=== PATIENT | female | born 1980 ===

== ENCOUNTER 2017-01-17 23:42 | Emergency (ER) | payer MEDICAID ==
[2017-01-18] MEDS ORDERED: Oxycodone/Acetaminophen 5/325 mg Tab PO STA (00:28)
[2017-01-18] MEDS ORDERED: Sodium Chloride 0.9% 1,000 ML IV STA (00:28)
--- NOTE | 2017-01-18 00:29 | ED PDOC ---
HPI: Headache Time Seen by Provider: 01/17/17 23:55 Chief Complaint (Nursing): Headache Chief Complaint (Provider): Headache and Leg pain History Per: Patient Additional Complaint(s): 37 yo female, denies any PMH, presents to ED with c/o migraine for the last 3 days, as well as, left LE pain x 3 weeks. No chest pain or SOB. No trauma or injury Past Medical History Reviewed: Nursing Documentation, Vital Signs Vital Signs: Last Vital Signs Temp 98.1 F 01/17/17 23:52 Pulse 98 H 01/17/17 23:52 Resp 17 01/17/17 23:52 BP 113/73 01/17/17 23:52 Pulse Ox 99 01/17/17 23:52 - Medical History PMH: Hypercholesterolemia - Surgical History Surgical History: Cholecystectomy, Tonsillectomy, - Family History Family History: States: No Known Family Hx - Home Medications Home Medications: Ambulatory Orders Medication Instructions Recorded Meloxicam [Mobic] 7.5 mg PO DAILY PRN #30 tab 01/13/16 Methocarbamol [Robaxin] 500 mg PO Q8 PRN #30 tab 01/13/16 Ibuprofen [Motrin] 600 mg PO Q6 #20 tab 01/18/17 - Allergies Allergies/Adverse Reactions: Allergies Allergy/AdvReac Type Severity Reaction Status Date / Time No Known Allergies Allergy Verified 07/12/15 18:04 Review of Systems ROS Statement: Except As Marked, All Systems Reviewed And Found Negative Musculoskeletal: Positive for: Other (calf paain and knee pain) Physical Exam - Reviewed Nursing Documentation Reviewed: Yes Vital Signs Reviewed: Yes - Physical Exam Appears: Positive for: Well, Non-toxic, No Acute Distress Head Exam: Positive for: ATRAUMATIC, NORMAL INSPECTION, NORMOCEPHALIC Skin: Positive for: Normal Color, Warm, DRY Eye Exam: Positive for: EOMI, Normal appearance, PERRL ENT: Positive for: Normal ENT Inspection Neck: Positive for: Normal, Painless ROM Cardiovascular/Chest: Positive for: Regular Rate, Rhythm Respiratory: Positive for: CNT, Normal Breath Sounds Gastrointestinal/Abdominal: Positive for: Normal Exam, Bowel Sounds, Soft Back: Positive for: Normal Inspection Extremity: Positive for: Normal ROM, Tenderness (to left calf), Calf Tenderness , Other (Dp pulse 2+. (+) Mone's sign). Negative for: Deformity, Swelling Neurologic/Psych: Positive for: Alert, Oriented - Laboratory Results Result Diagrams: 01/18/17 01:14 01/18/17 01:14 - ECG O2 Sat by Pulse Oximetry: 99 Medical Decision Making Medical Decision Making: IV access established and diagnotics ordered. IVF running and Pt medicated with Percocet and Reglan Left knee XR: NAD, as read by IAN CBC and COMP resulted WNL Dimer elevated at 0.62. Pt without any complaint sof chest pain or SOB. LE duplex ordered to r/o DVT FINDINGS: Deep veins: Normal color and spectral Doppler flow. Normal compressibility. No deep vein thrombosis from common femoral to popliteal vein. Superficial veins: No thrombosis. Soft tissues: No popliteal cyst. IMPRESSION: 1. No evidence of DVT within LEFT lower extremity. 2. Incidental/non-acute findings are described above. Pt educated on all results. Demonstrated full understanding. No complaints of pain on re-eval. Disposition - Clinical Impression Clinical Impression: Acute headache, Leg pain - Patient ED Disposition Is Patient to be Admitted: No - Disposition Disposition: Routine/Home Disposition Time: 03:00 Condition: GOOD Prescriptions: Ibuprofen [Motrin] 600 mg PO Q6 #20 tab Instructions: Acute Headache (ED), Leg Pain (ED) - POA Present On Arrival: None
[2017-01-18] MEDS ORDERED: Oxycodone/Acetaminophen 5/325 mg Tab ONE (00:38)
[2017-01-18 01:22] LABS: BASO # 0.1 K/uL (0.0-0.2); BASO % 0.6 % (0.0-2.0); EOS # 0.1 K/uL (0.0-0.7); HEMATOCRIT 35.1 % (34.0-47.0); LYMPH # 2.3 K/uL (1.0-4.3); LYMPH % 26.9 % (20.0-40.0); MEAN CELL VOLUME 89.7 fl (81.0-99.0); MEAN CORPUSCULAR HGB CONC 33.4 g/dL (33.0-37.0); MEAN PLATELET VOLUME 9.7 fl (7.2-11.7); MONO # 0.9 K/uL (0.0-0.8); MONO % 10.7 % (0.0-10.0); NEUT # 5.2 K/uL (1.8-7.0); NEUT % 60.8 % (50.0-75.0); RED CELL DISTRIBUTION WIDTH 12.4 % (11.5-14.5); WHITE BLOOD COUNT 8.6 K/uL (4.8-10.8)
[2017-01-18 01:32] LABS: ALB/GLOB RATIO 1.2 (1.0-2.1); ALKALINE PHOSPHATASE 60 U/L (38-126); ALT/SGPT 38 U/L (9-52); AST/SGOT 32 U/L (14-36); BILIRUBIN,TOTAL 0.2 mg/dl (0.2-1.3); BLOOD UREA NITROGEN 17 mg/dl (7-17); CALCIUM 9.2 mg/dL (8.4-10.2); CARBON DIOXIDE 23 mmol/L (22-30); CHLORIDE 105 mmol/L (98-107); GFR AFRICAN-AMERICAN > 60; GLUCOSE,RANDOM 99 mg/dL (65-105); POTASSIUM 4.1 MMOL/L (3.6-5.0); SODIUM 138 mmol/l (132-148); TOTAL PROTEIN 7.7 G/DL (6.3-8.2)
--- NOTE | 2017-01-18 04:00 | US ---
EXAM: US Duplex Left Lower Extremity Veins. CLINICAL HISTORY: 37 years old, female; Pain; Leg, upper and leg, lower; Left; Additional info: R/O dvt TECHNIQUE: Real-time ultrasound scan of the veins of the left lower extremity with color Doppler flow, spectral waveform analysis and compression. COMPARISON: No relevant prior studies available. FINDINGS: Deep veins: Normal color and spectral Doppler flow. Normal compressibility. No deep vein thrombosis from common femoral to popliteal vein. Superficial veins: No thrombosis. Soft tissues: No popliteal cyst. IMPRESSION: 1. No evidence of DVT within LEFT lower extremity. 2. Incidental/non-acute findings are described above.
[2017-01-18 05:36] VITALS: BP 117/66; PULSE 76; RESP 18; TEMP 97.9
--- NOTE | 2017-01-18 09:11 | RAD ---
PROCEDURE: Left Knee Radiographs. HISTORY: Pain. COMPARISON: None. FINDINGS: BONES: Three views of the left knee were performed. No fracture is seen. No lytic process is noted. JOINTS: Normal. No osteoarthritis. Patella appears normal location. JOINT EFFUSION: None. OTHER FINDINGS: None. IMPRESSION: Unremarkable x-ray left knee.
--- NOTE | 2017-01-18 09:15 | RAD ---
HISTORY: med screening COMPARISON: 01/12/2016 TECHNIQUE: Chest PA and lateral FINDINGS: LUNGS: No active pulmonary disease. PLEURA: No significant pleural effusion identified. No pneumothorax apparent. CARDIOVASCULAR: Normal. OSSEOUS STRUCTURES: No significant abnormalities. VISUALIZED UPPER ABDOMEN: Normal. OTHER FINDINGS: Trachea is midline. IMPRESSION: No active disease.
[2017-01-18 22:34] VITALS: O2SAT 99
--- NOTE | 2017-01-20 09:55 | CARD ---
APPROVED REPORT EKG Measurement Heart [id number] <Conclusion> Sinus rhythm with occasional premature ventricular complexes Otherwise normal ECG
== END 2017-01-18 05:36 | disposition home or self-care (01) ==
LOC: H.ER 23:42
DX: R51 Headache (principal); E78.00 Pure hypercholesterolemia, unspecified; I49.3 Ventricular premature depolarization; M25.562 Pain in left knee

== ENCOUNTER 2017-07-25 12:32 | Emergency (ER) | payer MEDICAID ==
[2017-07-25] MEDS ORDERED: Sodium Chloride 0.9% 1,000 ML IV STA (13:23)
[2017-07-25 14:02] LABS: BASO % 0.6 % (0.0-2.0); EOS % 0.5 % (0.0-4.0); LYMPH # 1.4 K/uL (1.0-4.3); LYMPH % 18.4 % (20.0-40.0); MEAN CELL VOLUME 85.5 fl (81.0-99.0); MEAN CORPUSCULAR HEMOGLOBIN 27.4 pg (27.0-31.0); MEAN PLATELET VOLUME 9.3 fl (7.2-11.7); MONO # 0.7 K/uL (0.0-0.8); MONO % 9.2 % (0.0-10.0); NEUT # 5.6 K/uL (1.8-7.0); NEUT % 71.3 % (50.0-75.0); RED CELL DISTRIBUTION WIDTH 14.3 % (11.5-14.5); WHITE BLOOD COUNT 7.8 K/uL (4.8-10.8)
--- NOTE | 2017-07-25 14:10 | ED PDOC ---
HPI: Headache Time Seen by Provider: 07/25/17 12:53 Chief Complaint (Nursing): Headache Chief Complaint (Provider): Headache History Per: Patient History/Exam Limitations: no limitations Onset/Duration Of Symptoms: Days Current Symptoms Are (Timing): Still Present Additional Complaint(s): 37 y/o female presents to the emergency department with a complaint of a right- sided frontal throbbing headache behind the eye that started today, 07/25/2017. Associated with photophobia and nausea. Reports experiencing abdominal cramping and 4-5 episodes of loose watery diarrhea since 07/20/2017. States diarrhea subsided after taking Imodium but that is when headache began. Patient took Excedrin Migraine without the relief of symptoms. Denies fever, chills, or any further medical complaints. Past Medical History Reviewed: Historical Data, Nursing Documentation, Vital Signs Vital Signs: Last Vital Signs Temp 97.5 F L 07/25/17 12:43 Pulse 74 07/25/17 12:43 Resp BP 104/64 07/25/17 12:43 Pulse Ox 98 07/25/17 12:43 - Medical History PMH: Hypercholesterolemia - Surgical History Surgical History: Cholecystectomy, Tonsillectomy, - Family History Family History: States: Unknown Family Hx - Social History Current smoker - smoking cessation education provided: No Alcohol: Occasional Drugs: Denies - Immunization History Hx Tetanus Toxoid Vaccination: No Hx Influenza Vaccination: No Hx Pneumococcal Vaccination: No - Home Medications Home Medications: Ambulatory Orders Medication Instructions Recorded Acetaminophen/Butalbital/Caf 1 tab PO TID #10 tab 07/25/17 [Fioricet] Dicyclomine [Bentyl] 10 mg PO QID PRN #10 cap 07/25/17 - Allergies Allergies/Adverse Reactions: Allergies Allergy/AdvReac Type Severity Reaction Status Date / Time No Known Allergies Allergy Verified 04/15/17 11:20 Review of Systems ROS Statement: Except As Marked, All Systems Reviewed And Found Negative Constitutional: Negative for: Fever, Chills Eyes: Positive for: Other (Photophobia) Gastrointestinal: Positive for: Nausea, Abdominal Pain (Cramping), Diarrhea ( Had resolved since) Neurological: Positive for: Headache Physical Exam - Reviewed Nursing Documentation Reviewed: Yes Vital Signs Reviewed: Yes - Physical Exam Appears: Positive for: Non-toxic, No Acute Distress Head Exam: Positive for: ATRAUMATIC, NORMAL INSPECTION, NORMOCEPHALIC Skin: Positive for: Normal Color, Warm, Dry Eye Exam: Positive for: Normal appearance, EOMI Neck: Positive for: Normal, Supple Cardiovascular/Chest: Positive for: Regular Rate, Rhythm. Negative for: Murmur Respiratory: Positive for: Normal Breath Sounds. Negative for: Accessory Muscle Use, Respiratory Distress Gastrointestinal/Abdominal: Positive for: Normal Exam, Soft. Negative for: Tenderness Extremity: Positive for: Normal ROM. Negative for: Pedal Edema Neurologic/Psych: Positive for: Alert, Oriented (x3) - Laboratory Results Result Diagrams: 07/25/17 13:57 07/25/17 13:57 - ECG O2 Sat by Pulse Oximetry: 98 (RA) Pulse Ox Interpretation: Normal Medical Decision Making Medical Decision Making: Time: 13:27 Initial impression: Headache Initial plan: --CMP --Urine DIP & Preg --CBC w/ diff --Tylenol 975 mg PO --Motrin 600 mg PO --Reglan 10 mg IVP --Sodium Chloride 1L IV --Reevaluation Time: 15:14 --Patient reports feeling better than before. Ready for d/c. Scribe Attestation: Documented by Christina Sanchez, acting as a scribe for Chichi Melissa PA-C Provider Scribe Attestation: All medical record entries made by the Scribe were at my direction and personally dictated by me. I have reviewed the chart and agree that the record accurately reflects my personal performance of the history, physical exam, medical decision making, and the department course for this patient. I have also personally directed, reviewed, and agree with the discharge instructions and disposition. Disposition - Clinical Impression Clinical Impression: Headache, Diarrhea - Patient ED Disposition Is Patient to be Admitted: No - Disposition Disposition: Routine/Home Disposition Time: 15:21 Condition: STABLE Prescriptions: Acetaminophen/Butalbital/Caf [Fioricet] 1 tab PO TID #10 tab Dicyclomine [Bentyl] 10 mg PO QID PRN #10 cap PRN Reason: Pain, Mild (1-3) Instructions: Acute Headache (ED), Acute Diarrhea (ED), Viral Syndrome (ED) Forms: [employer] (Macedonian)
[2017-07-25 14:22] LABS: ALB/GLOB RATIO 1.3 (1.0-2.1); ALKALINE PHOSPHATASE 53 U/L (38-126); ALT/SGPT 36 U/L (9-52); AST/SGOT 33 U/L (14-36); BILIRUBIN,TOTAL 0.5 mg/dl (0.2-1.3); BLOOD UREA NITROGEN 13 mg/dl (7-17); CALCIUM 9.5 mg/dL (8.4-10.2); CARBON DIOXIDE 21 mmol/L (22-30); CHLORIDE 106 mmol/L (98-107); GFR AFRICAN-AMERICAN > 60; GLUCOSE,RANDOM 94 mg/dL (65-105); SODIUM 140 mmol/l (132-148); TOTAL PROTEIN 7.8 G/DL (6.3-8.2)
[2017-07-25 15:50] VITALS: BP 103/73; PULSE 68; RESP 18; TEMP 98; O2SAT 100
== END 2017-07-25 15:50 | disposition home or self-care (01) ==
LOC: H.ER 12:32
DX: R51 Headache (principal); R19.7 Diarrhea, unspecified
CPT/HCPCS: 80053; 81025; 85025; 96374; 99284; J2765; J7040